=== PATIENT | female | born 1970 | race African-American/Black ===

== ENCOUNTER 2016-06-30 01:53 | Emergency (ER) | payer OTHER ==
[~2016-06-30] VITALS: Ht 165.1 cm; Wt 81.6 kg
[~2016-06-30 01:53] MED LIST: ALBUTEROL SULF8.5 GM INH; ANTIBIOTIC; CEFTIN500 MG ORAL; CIPROFLOXACIN500 M2 ORAL; IBUPROFEN800 MG ORAL; LEVAQUIN250 M1 ORAL; NKM; NORCO 5-325 TA1 EACH ORAL; PERCOCET 5-3251 EACH ORAL; VICODIN 5-3001 EACH ORAL
--- NOTE | 2016-06-30 02:04 | Emergency Room Report ---
History of Present Illness General Chief Complaint: Flu Like Symptoms Source: Patient Present Illness [facility] This is a 44-year-old female with no significant past medical history. She presents with chief complaint of fever chills, abdominal pain, vomiting and diarrhea. Also with coughing congestion. Denies any dysuria frequency. Took Tylenol prior to arrival. Has diffuse body pain. Onset last night. Allergies: Coded Allergies: ASPIRIN (Verified Allergy, Mild, Itching, 06/30/16) Patient History Past Medical History: see triage record, old chart reviewed Past Surgical History: other Pertinent Family History: none Last Menstrual Period: hx of partial hysterectomy Now: No Immunizations: other Reviewed Nursing Documentation: PMH: Agreed, PSxH: Agreed Nursing Documentation-PMH Hx Cardiac Problems: No Hx Cancer: No Hx Gastrointestinal Problems: No - cyst, partial hysterectomy Hx Neurological Problems: No Review of Systems Constitutional: Reports: fever, weakness Eye: Denies: blurred vision, eye pain ENT: Denies: ear pain, nose congestion, throat swelling Respiratory: Reports: cough, Denies: shortness of breath Cardiovascular: Denies: chest pain, palpitations Gastrointestinal: Reports: abdominal pain, diarrhea, nausea, vomiting Musculoskeletal: Denies: back pain, joint pain Skin: Denies: rash Neurological: Denies: headache, numbness Endocrine: Denies: increased thirst, increased urine Hematologic/Lymphatic: Denies: easy bruising All Other Systems: negative except mentioned in HPI Physical Exam Vital Signs Date Time Temp Pulse Resp B/P Pulse Ox O2 Delivery O2 Flow Rate FiO2 06/30/16 01:57 99.7 93 16 125/82 99 Room Air vitals with low grade fever Sp02 EP Interpretation: reviewed, normal General Appearance: well appearing, no apparent distress, alert Head: normocephalic, atraumatic Eyes: bilateral eye EOMI, bilateral eye PERRL ENT: hearing grossly normal, normal pharynx Neck: full range of motion, supple, no meningismus Respiratory: chest non-tender, lungs clear, normal breath sounds Cardiovascular #1: regular rate, rhythm, no murmur Gastrointestinal: normal bowel sounds, no mass, no organomegaly, no bruit, non- distended, tenderness - Right lower quadrant Musculoskeletal: back normal, gait/station normal, normal range of motion Neurologic: alert, oriented x3 Psychiatric: mood/affect normal Skin: warm/dry Medical Decision Making Diagnostic Impression: Primary Impression: Influenza-like symptoms Additional Impression: UTI (urinary tract infection) Qualified Codes: N30.00 - Acute cystitis without hematuria ER Course Patient with abdominal pain and fever. Most likely viral in nature. Her CBC is unremarkable but the differential showed elevated monocyte count. This points to a viral illness. She does have a history of chronic UTI and she infection. CT scan show a 10 bladder wall. She does have few bacteria in her urine. I will go ahead and treat that with antibiotics. Discharge home. Lab Results Impression labs unremarkable CT/MRI/US Diagnostic Results CT/MRI/US Diagnostic Results : Imaging Test Ordered: CT abdomen and pelvis Impression read by radiologist. diffuse wall thickening of the urinary bladder. Left adnexal cyst. Last Vital Signs Date Time Temp Pulse Resp B/P Pulse Ox O2 Delivery O2 Flow Rate FiO2 06/30/16 01:57 99.7 93 16 125/82 99 Room Air Status: improved Disposition: HOME, SELF-CARE Condition: Stable Scripts Ibuprofen* (MOTRIN*) 600 Mg Tablet 600 MG ORAL THREE TIMES A DAY, #30 TAB 0 Refills Prov: RAMONE VALE M.D. 06/30/16 Cephalexin* (KEFLEX*) 500 Mg Capsule 500 MG ORAL TID, #21 CAP 0 Refills Prov: RAMONE VALE M.D. 06/30/16 Additional Instructions: Followup with your DrMelodie in 2-3 days. Return if symptom worsen. RAMONE VALE M.D. Jun 30, 2016 02:04
[2016-06-30 02:30] VITALS: BP 127/86
[2016-06-30] MEDS ORDERED: Ketorolac 30mg Inj IV ONE (02:30)
[2016-06-30 02:47] LABS: APPEARANCE,URINE CLEAR; KETONES,URINE NEGATIVE (NEGATIVE); LEUKOCYTE ESTERASE ,URINE 1+ (NEGATIVE); NITRITE,URINE NEGATIVE (NEGATIVE); PH,URINE 6 (4.5-8.0); PROTEIN,URINE NEGATIVE (NEGATIVE); UROBILINOGEN,URINE NORMAL MG/DL (0.0-1.0)
[2016-06-30 02:47] LABS: BASOPHILS % (AUTO) 1.9 % (0.0-2.0); EOSINOPHILS % (AUTO) 1.1 % (0.0-3.0); LYMPHOCYTES % (AUTO) 11.3 % (20.0-45.0); MEAN CORPUSCULAR HEMOGLOBIN 32.4 PG (27.0-31.0); MEAN CORPUSCULAR HGB CONC 33.7 G/DL (32.0-36.0); MEAN CORPUSCULAR VOLUME 96 FL (80-99); MEAN PLATELET VOLUME 7.3 FL (6.5-10.1); MONOCYTES % (AUTO) 12.1 % (1.0-10.0); NEUTROPHILS % (AUTO) 73.7 % (45.0-75.0); PLATELET COUNT 182 K/UL (150-450); RED CELL DISTRIBUTION WIDTH 12.3 % (11.6-14.8); WHITE BLOOD COUNT 5.1 K/UL (4.8-10.8)
[2016-06-30 02:52] LABS: BACTERIA,URINE FEW /HPF; SQUAMOUS EPITHELIAL CELL,UR MODERATE /LPF (NONE/OCC)
[2016-06-30 03:06] LABS: ALANINE AMINOTRANSFERASE 11 U/L (3-33); ALBUMIN/GLOBULIN RATIO 1.5 (1.0-2.7); ANION GAP 12 (5-15); ASPARTATE AMINO TRANSFERASE 14 U/L (5-40); CALCIUM 8.6 mg/dL (8.6-10.2); CARBON DIOXIDE 22 mEQ/L (20-30); CHLORIDE 104 mEQ/L (98-107); GLOMERULAR FILTRATION RATE > 60 mL/min (>60); HEMOLYSIS 0; LIPASE 18 U/L (< 60); POTASSIUM 4.4 mEQ/L (3.4-4.9); SODIUM 138 mEQ/L (135-145)
[2016-06-30] MEDS ORDERED: Morphine Sulfate 4mg/ml Inj ONE (03:33)
[2016-06-30] MEDS ORDERED: Morphine Sulfate 4mg/ml Inj IVP ONE (03:45)
[2016-06-30 04:01] VITALS: BP 124/77
[2016-06-30] MEDS ORDERED: KEFLEX500 MG ORAL (04:30)
[2016-06-30] MEDS ORDERED: IBUPROFEN600 MG ORAL (04:30)
[2016-06-30 04:45] VITALS: BP 124/77
--- NOTE | 2016-06-30 10:06 | Diagnostic Imaging Report ---
Clinical Indication: Abdominal pain Technique: No oral contrast utilized, per emergency room physician request IV administration nonionic contrast. Is a obtained through the abdomen and pelvis. Multiplanar reconstructions were generated. Total dose length product 880 mGycm. CTDIvol(s) 16 mGy Comparison: 02/21/2015 Findings: The appendix is normal. There is colonic diverticulosis. There is no evidence of diverticulitis. There is equivocal trace free cul-de-sac fluid. No small bowel distention. No free intraperitoneal air. There is a tiny umbilical hernia, into which protrudes the edge of the small bowel loop. The distal esophagus, stomach, duodenum are unremarkable. The liver, gallbladder, bile ducts, pancreas, spleen, adrenals are unremarkable. The right kidney is atrophic, appearing to be somewhat more so than on the prior study. Previously demonstrated partially involuted parapelvic cyst is again demonstrated. The left kidney is unremarkable. No retroperitoneal or mesenteric mass or adenopathy. Multiple left ovarian cysts or follicles are again demonstrated, the largest measuring 2.7 cm in diameter. The uterus is not definitely demonstrated. Surgical clips are seen within the pelvis. There is suggestion of mild bladder wall thickening, although this could be an artifact of under distention. The included lung bases are clear. There are bilateral breast prostheses incidentally noted. The bones demonstrate mild degenerative changes of the lower lumbar spine. Impression: Equivocal mild bladder wall thickening. Most likely an artifact of under distention, but cystitis not excludable No definite acute process otherwise Trace free pelvic fluid, most likely physiologic Colonic diverticulosis, also previously reported Multiple prominent left ovarian cysts, including dominant 2.7 cm cyst. Probably just prominent follicles, but pelvic sonography should be considered for better evaluation Tiny paraumbilical hernia containing a small knuckle of small bowel, nonobstructive. There is a tiny fat-containing umbilical hernia again demonstrated Atrophic right kidney, also previously described, with a small involuted parapelvic cyst Other findings as noted, including evidence of prior hysterectomy, degenerative spondylosis, bilateral breast prostheses The CT scanner at [facility] is accredited by the [employer] and the scans are performed using protocols designed to limit radiation exposure to as low as reasonably achievable to attain images of sufficient resolution adequate for diagnostic evaluation.
== END 2016-06-30 04:45 | disposition home or self-care (01) ==
LOC: EMR 02:15
DX: J11.1 Influenza due to unidentified influenza virus with other respiratory manifestations (principal); N39.0 Urinary tract infection, site not specified; K57.30 Diverticulosis of large intestine without perforation or abscess without bleeding; N83.202 Unspecified ovarian cyst, left side; K42.9 Umbilical hernia without obstruction or gangrene; Z88.6 Allergy status to analgesic agent; Z90.710 Acquired absence of both cervix and uterus
CPT/HCPCS: 36415; 74177; 80053; 81003; 83690; 85025; 96374; 96375; 99284; J1885; J2270; J2405; Q9967

== ENCOUNTER 2016-09-10 07:47 | Emergency (ER) | payer OTHER ==
[~2016-09-10] VITALS: Ht 165.1 cm; Wt 76.2 kg
[~2016-09-10 07:47] MED LIST changes: +IBUPROFEN600 MG ORAL; +KEFLEX500 MG ORAL
[2016-09-10 08:09] VITALS: BP 118/76
[2016-09-10] MEDS ORDERED: Ketorolac 30mg Inj IM ONE (08:30)
[2016-09-10] MEDS ORDERED: Morphine Sulfate 4mg/ml Inj IM ONE (09:30)
[2016-09-10] MEDS ORDERED: Morphine Sulfate 4mg/ml Inj IVP ONE ×2 (10:00→11:15)
[2016-09-10 10:05] LABS: BASOPHILS % (AUTO) 1.9 % (0.0-2.0); EOSINOPHILS % (AUTO) 1.9 % (0.0-3.0); LYMPHOCYTES % (AUTO) 32.1 % (20.0-45.0); MEAN CORPUSCULAR HEMOGLOBIN 33.9 PG (27.0-31.0); MEAN CORPUSCULAR HGB CONC 35.1 G/DL (32.0-36.0); MEAN CORPUSCULAR VOLUME 97 FL (80-99); MONOCYTES % (AUTO) 7.9 % (1.0-10.0); NEUTROPHILS % (AUTO) 56.1 % (45.0-75.0); PLATELET COUNT 171 K/UL (150-450); RED BLOOD COUNT 4.08 M/UL (4.20-5.40); RED CELL DISTRIBUTION WIDTH 12.1 % (11.6-14.8); WHITE BLOOD COUNT 4.2 K/UL (4.8-10.8)
[2016-09-10 10:18] LABS: ALANINE AMINOTRANSFERASE 13 U/L (3-33); ALBUMIN/GLOBULIN RATIO 1.8 (1.0-2.7); ANION GAP 15 (5-15); ASPARTATE AMINO TRANSFERASE 13 U/L (5-40); CALCIUM 8.8 mg/dL (8.6-10.2); CARBON DIOXIDE 20 mEQ/L (20-30); CHLORIDE 102 mEQ/L (98-107); CREATININE 0.9 mg/dL (0.5-0.9); GLOMERULAR FILTRATION RATE > 60 mL/min (>60); HEMOLYSIS 4; POTASSIUM 4.2 mEQ/L (3.4-4.9); SODIUM 137 mEQ/L (135-145)
[2016-09-10 10:20] VITALS: BP 122/79
[2016-09-10 11:18] VITALS: BP 118/75
[2016-09-10] MEDS ORDERED: CYCLOBENZAPRINE10 MG ORAL (11:50)
[2016-09-10] MEDS ORDERED: NORCO 5-325 TA1 EACH ORAL (11:50)
[2016-09-10] MEDS ORDERED: IBUPROFEN600 MG ORAL (11:50)
[2016-09-10 12:03] VITALS: BP 118/75
--- NOTE | 2016-09-10 13:11 | Emergency Room Report ---
History of Present Illness General Chief Complaint: Lower Back Pain or Injury Source: Patient Present Illness HPI 46-year-old female presents to ED complaining of back pain. States pain started yesterday afternoon while walking up the steps. Patient notes pain in the lower back, 10 out of 10, dull, radiating down the right leg. Patient states she tried pain medications without relief. Has history of chronic pain because of a pinched nerve in her neck. 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 Denies any fall or cannot recall any specific injury. Denies any bowel or bladder incontinence. No other aggravating relieving factors. Denies any other associated symptoms Allergies: Coded Allergies: ASPIRIN (Verified Allergy, Mild, Itching, 06/30/16) Patient History Past Medical History: none Past Surgical History: none Pertinent Family History: none Social History: Denies: alcohol use, drug use, smoking Now: No - partial hysterectomy : 5 Para: 1 Immunizations: UTD Reviewed Nursing Documentation: PMH: Agreed, PSxH: Agreed Nursing Documentation-PMH Hx Cardiac Problems: No Hx Cancer: No Hx Gastrointestinal Problems: No - cyst, partial hysterectomy Hx Neurological Problems: No Review of Systems All Other Systems: negative except mentioned in HPI Physical Exam Vital Signs Date Time Temp Pulse Resp B/P Pulse Ox O2 Delivery O2 Flow Rate FiO2 09/10/16 07:54 97.7 75 22 114/79 98 Room Air Sp02 EP Interpretation: reviewed, normal General Appearance: alert, GCS 15, non-toxic, moderate distress Head: normocephalic Eyes: bilateral eye PERRL, bilateral eye normal inspection ENT: normal ENT inspection Neck: normal inspection Respiratory: normal inspection Cardiovascular #1: normal inspection Gastrointestinal: normal inspection Rectal: deferred Genitourinary: no CVA tenderness, no vertebral tenderness Musculoskeletal: tender - paraspinal lumbar tenderness Neurologic: alert, oriented x3, responsive, motor strength/tone normal, sensory intact, speech normal Psychiatric: normal inspection Skin: normal inspection Lymphatic: normal inspection Medical Decision Making Diagnostic Impression: Primary Impression: Low back pain Qualified Codes: M54.41 - Lumbago with sciatica, right side ER Course Hospital Course 46-year-old F presents to ED with low back pain. denies trauma Differential diagnosis includes- chronic pain, muscular back pain, sciatica Clinical course Patient placed on stretcher. After initial history and physical I ordered Toradol and Valium On reassessment patient states pain is getting worse. Crying. I ordered labs, IV pain medications and CT scan Labs - no leukocytosis, electrolytes ok CT L spine shows no acute pathology Upon reassessment, patient states pain has improved. She states she feels better, wishes to be discharged I feel this is a highly complex case requiring extensive working including EKG/ Rhythm strip, Xray/CT/US, Blood/urine lab work, repeat exams while in ED, and administration of strong opiates/narcotics for pain control, admission to hospital or close patient follow up. Diagnosis - low back pain Stable and discharged to home with Rx Motrin, [place], Flexeril. Followup with PMD. Return to ED if symptoms recur or worsen Labs Test 09/10/16 09:42 White Blood Count 4.2 K/UL (4.8-10.8) Red Blood Count 4.08 M/UL (4.20-5.40) Hemoglobin 13.8 G/DL (12.0-16.0) Hematocrit 39.4 % (37.0-47.0) Mean Corpuscular Volume 97 FL (80-99) Mean Corpuscular Hemoglobin 33.9 PG (27.0-31.0) Mean Corpuscular Hemoglobin Concent 35.1 G/DL (32.0-36.0) Red Cell Distribution Width 12.1 % (11.6-14.8) Platelet Count 171 K/UL (150-450) Mean Platelet Volume 7.0 FL (6.5-10.1) Neutrophils (%) (Auto) 56.1 % (45.0-75.0) Lymphocytes (%) (Auto) 32.1 % (20.0-45.0) Monocytes (%) (Auto) 7.9 % (1.0-10.0) Eosinophils (%) (Auto) 1.9 % (0.0-3.0) Basophils (%) (Auto) 1.9 % (0.0-2.0) Sodium Level 137 mEQ/L (135-145) Potassium Level 4.2 mEQ/L (3.4-4.9) Chloride Level 102 mEQ/L (98-107) Carbon Dioxide Level 20 mEQ/L (20-30) Anion Gap 15 (5-15) Blood Urea Nitrogen 7 mg/dL (7-23) Creatinine 0.9 mg/dL (0.5-0.9) Estimat Glomerular Filtration Rate > 60 mL/min (>60) Glucose Level 74 mg/dL (74-106) Calcium Level 8.8 mg/dL (8.6-10.2) Total Bilirubin 0.4 mg/dL (0.0-1.2) Aspartate Amino Transf (AST/SGOT) 13 U/L (5-40) Alanine Aminotransferase (ALT/SGPT) 13 U/L (3-33) Alkaline Phosphatase 42 U/L (35-104) Total Protein 6.0 g/dL (6.6-8.7) Albumin 3.9 g/dL (3.5-5.2) Globulin 2.1 g/dL Albumin/Globulin Ratio 1.8 (1.0-2.7) Human Chorionic Gonadotropin, Qual Negative Chest X-Ray Diagnostic Results Chest X-Ray Ordered: No Last Vital Signs Date Time Temp Pulse Resp B/P Pulse Ox O2 Delivery O2 Flow Rate FiO2 09/10/16 12:03 97.7 80 18 118/75 100 Room Air Status: improved Disposition: HOME, SELF-CARE Condition: Stable Scripts Cyclobenzaprine Hcl* (FLEXERIL*) 10 Mg Tablet 10 MG ORAL TID Y for Muscle Spasm, #20 TAB Prov: PHILIP PINO M.D. 09/10/16 Hydrocodone Bit/Acetaminophen 5-325* (NORCO 5-325*) 1 Each Tablet 1 TAB ORAL Q6H Y for For Pain, #10 TAB 0 Refills Prov: PHILIP PINO M.D. 09/10/16 Ibuprofen* (MOTRIN*) 600 Mg Tablet 600 MG ORAL Q8H Y for For Pain, #30 TAB 0 Refills Prov: PHILIP PINO M.D. 09/10/16 Departure Forms: Return to Work Return to Work Date: Sep 12, 2016 Work Restrictions: No Heavy Lifting Patient Instructions: Lumbosacral Strain PHILIP PINO M.D. Sep 10, 2016 13:11
--- NOTE | 2016-09-11 09:00 | Diagnostic Imaging Report ---
Indication: Back pain Technique: Continuous helical transaxial imaging of the lumbar spine was obtained from the lung bases to the pubic symphysis. No IV contrast was administered. Coronal 2-D reformats were also obtained. Study obtained in a Siemens sensation [address] Total Dose length Product (DLP): [address] Dose Index Volume (CTDIvol): 15 mGy Comparison: None Findings: There is no evidence of an acute fracture or malalignment. Height and configuration of the vertebral bodies and intervertebral discs are within normal limits. The facets show mild hypertrophic spurring. There is no soft tissue swelling. Incidental note made of a contour deformity of a part of the right kidney probably representing scarring in the upper pole. Dense radiopaque focus noted within the visualized part of the right kidney suspicious for nephrolithiasis. There is no hydronephrosis definitely identified, but the kidney and collecting system are not evaluated comprehensive then this examination Impression: No acute injury identified. Incidental right renal nephrolithiasis suspected. There is probable scarring of the right kidney. Further evaluation could be obtained with CT of the abdomen pelvis. The CT scanner at [facility] is accredited by the [employer] and the scans are performed using dose optimization techniques as appropriate to a performed exam including Automatic Exposure control.
== END 2016-09-10 12:05 | disposition home or self-care (01) ==
LOC: EMR 08:09
DX: M54.5 Low back pain (principal); Z88.6 Allergy status to analgesic agent
CPT/HCPCS: 36415; 72131; 80053; 84703; 85025; 96372; 96374; 96375; 99284; J1885; J2270